=== PATIENT | female | born 2000 | race Caucasian/White ===

== ENCOUNTER 2019-09-25 01:17 | Emergency (ER) | payer OTHER, SELFPAY ==
[~2019-09-25] VITALS: Ht 165.1 cm; Wt 61.4 kg
[2019-09-25 01:18] VITALS: BP 122/61
[2019-09-25] MEDS ORDERED: VALA500T5 PO (01:34)
[2019-09-25] MEDS ORDERED: CIPR-249 PO (05:14)
[2019-09-25] MEDS ORDERED: TRAM50TA2 PO ×2 (05:14→05:18)
[2019-09-25] MEDS ORDERED: NORCO 5/325MG TABLET (BULK FOR ED) PO ONE (05:15)
[2019-09-25] MEDS ORDERED: BACT800T5 PO (05:20)
== END 2019-09-25 05:38 | disposition home or self-care (01) ==
LOC: M ED 01:17
DX: R11.0 Nausea (principal); T50.995A Adverse effect of other drugs, medicaments and biological substances, initial encounter; X58.XXXA Exposure to other specified factors, initial encounter; Y92.89 Other specified places as the place of occurrence of the external cause; D64.9 Anemia, unspecified